=== PATIENT | female | born 1990 | race Two or more races ===

== ENCOUNTER 2016-05-02 14:14 | Emergency (ER) | payer MEDICAID ==
[~2016-05-02] VITALS: Ht 165.1 cm; Wt 90.7 kg
[~2016-05-02 14:14] MED LIST: PREN-145 OR
[2016-05-02 15:15] LABS: Basophils # (auto) 0 uL; Basophils % (auto) 0.4 % (0.0-2.0); Eosinophils # (auto) 0.2 uL; Eosinophils % (auto) 2.9 % (0.0-7.0); Hematocrit 39.2 % (36.0-46.0); Hemoglobin 12.9 g/dL (12.2-16.2); Lymphocytes # (auto) 2.7 uL; Lymphocytes % (auto) 32.4 % (10.0-50.0); Mean Corpuscular Hemoglobin 30.2 pg (28.0-32.0); Mean Corpuscular Hgb Conc. 32.9 g/dL (32.0-36.0); Mean Corpuscular Volume 91.8 fL (80.0-100.0); Mean Platelet Volume 9.8 fL (7.4-10.4); Monocytes # (auto) 0.8 uL; Monocytes % (auto) 9.1 % (0.0-12.0); Neutrophils # (auto) 4.6 uL; Neutrophils % (auto) 55.2 % (37.0-80.0); Platelet Count (auto) 307 10^3/uL (140-450); White Blood Cell 8.3 10^3/uL (4.4-10.8)
[2016-05-02 15:44] LABS: BUN/Creatinine Ratio 12.3; Bilirubin, Total 0.4 mg/dL (0.2-1.0); Calcium 8.6 mg/dL (8.5-10.1); Potassium 4.1 mmol/L (3.5-5.1); Total Protein 6.9 g/dL (6.4-8.2)
[2016-05-02 20:58] LABS: Urine RBC None Seen /hpf (0 - 4)
[2016-05-02 21:32] LABS: Urine Bilirubin Negative (Negative); Urine Blood Negative /uL (Negative); Urine Color Yellow (Yellow); Urine Glucose Normal (Normal); Urine Ketone TRACE (Negative); Urine Mucus FEW (None Seen); Urine Nitrite Negative (Negative); Urine Squamous Epithelial Cell MOD /hpf (<5); Urine Urobilinogen Normal (Negative)
[2016-05-03 00:25] VITALS: BP 102/70
== END 2016-05-03 01:06 | disposition home or self-care (01) ==
LOC: EDBD 14:14 → ER 14:22
DX: O20.0 Threatened abortion (principal); Z3A.01 Less than 8 weeks gestation of pregnancy
CPT/HCPCS: 36415; 76801; 80053; 81001; 84702; 85025; 85049; 86901

== ENCOUNTER 2016-05-18 14:10 | Emergency (ER) | payer MEDICAID ==
[~2016-05-18] VITALS: Ht 157.5 cm; Wt 99.8 kg
[2016-05-18 17:50] VITALS: BP 145/88
== END 2016-05-18 18:08 | disposition home or self-care (01) ==
LOC: EDBD 14:10 → EDUNIT# 14:10 → ER 14:21
DX: O26.891 Other specified pregnancy related conditions, first trimester (principal); Z3A.01 Less than 8 weeks gestation of pregnancy; R10.32 Left lower quadrant pain; R10.31 Right lower quadrant pain
CPT/HCPCS: 36415; 76801; 81002; 84702

== ENCOUNTER 2016-06-01 14:41 | Emergency (ER) | payer MEDICAID ==
[~2016-06-01] VITALS: Ht 154.9 cm; Wt 68.0 kg
[2016-06-01 15:43] LABS: Basophils # (auto) 0 uL; Basophils % (auto) 0.4 % (0.0-2.0); Eosinophils # (auto) 0.2 uL; Eosinophils % (auto) 1.8 % (0.0-7.0); Hematocrit 40.5 % (36.0-46.0); Hemoglobin 13.2 g/dL (12.2-16.2); Lymphocytes # (auto) 2.4 uL; Lymphocytes % (auto) 27.3 % (10.0-50.0); Mean Corpuscular Hemoglobin 29.9 pg (28.0-32.0); Mean Corpuscular Hgb Conc. 32.6 g/dL (32.0-36.0); Mean Corpuscular Volume 91.7 fL (80.0-100.0); Mean Platelet Volume 9.1 fL (7.4-10.4); Monocytes # (auto) 0.7 uL; Monocytes % (auto) 7.5 % (0.0-12.0); Neutrophils # (auto) 5.6 uL; Platelet Count (auto) 355 10^3/uL (140-450); Red Cell Distribution Width 13.8 % (11.6-16.0); White Blood Cell 8.9 10^3/uL (4.4-10.8)
[2016-06-01 16:00] LABS: BUN/Creatinine Ratio 13.3; Bilirubin, Total 0.4 mg/dL (0.2-1.0); Calcium 8.7 mg/dL (8.5-10.1); Total Protein 7.4 g/dL (6.4-8.2)
[2016-06-01 16:15] LABS: Urine Bilirubin Negative (Negative); Urine Blood Negative /uL (Negative); Urine Ca Oxalate Crystal FEW (None Seen); Urine Color Yellow (Yellow); Urine Glucose Normal (Normal); Urine Ketone Negative (Negative); Urine Mucus FEW (None Seen); Urine Nitrite Negative (Negative); Urine RBC 1 /hpf (0 - 4); Urine Squamous Epithelial Cell FEW /hpf (<5); Urine Urobilinogen Normal (Negative)
[2016-06-01] MEDS ORDERED: ONDANSETRON HCL 4 MG/2 ML VIAL IM ONE (23:00)
[2016-06-01] MEDS ORDERED: NALBUPHINE HCL 10 MG/1ml INJECTION IM ONE (23:00)
[2016-06-02] VITALS: BP 136/72
== END 2016-06-02 00:09 | disposition home or self-care (01) ==
LOC: ER 15:02
DX: O26.891 Other specified pregnancy related conditions, first trimester (principal); Z3A.10 10 weeks gestation of pregnancy; K29.70 Gastritis, unspecified, without bleeding; Z88.6 Allergy status to analgesic agent
CPT/HCPCS: 36415; 76775; 76801; 80053; 81001; 84702; 85025; 96372; 99285; J2300; J2405

== ENCOUNTER 2016-08-13 13:15 | Observation (INO) | payer MEDICAID ==
[~2016-08-13] VITALS: Ht 162.6 cm; Wt 117.9 kg
[2016-08-13] MEDS ORDERED: LACTATED RINGER'S 1,000 ML IV ONE (14:15)
[2016-08-13] MEDS ORDERED: ACETAMINOPHEN 325 MG TAB PO ONE (15:30)
[2016-08-13 17:57] LABS: Urine Bilirubin Negative (Negative); Urine Blood Negative /uL (Negative); Urine Ca Oxalate Crystal MOD (None Seen); Urine Color Yellow (Yellow); Urine Glucose Normal (Normal); Urine Ketone 2+ (Negative); Urine Mucus FEW (None Seen); Urine Nitrite Negative (Negative); Urine RBC 1 /hpf (0 - 4); Urine Squamous Epithelial Cell MOD /hpf (<5); Urine Urobilinogen Normal (Negative); Urine pH 6.5 (5.0-8.0)
== END 2016-08-13 16:05 | disposition home or self-care (01) | DRG 566 ==
LOC: LDRP 13:15
PROVIDERS: ADMIT Specialist; ATTEND Specialist
DX: O26.892 Other specified pregnancy related conditions, second trimester (principal); R10.32 Left lower quadrant pain; Z3A.20 20 weeks gestation of pregnancy
CPT/HCPCS: 59025; 81001; 81002; 87086; 96360; G0378; 96361

== ENCOUNTER 2016-10-19 18:55 | Observation (INO) | payer MEDICAID | END 2016-10-19 19:55 | disposition home or self-care (01) | DRG 566 | LOC: LDRP 18:55 | PROVIDERS: ADMIT Specialist; ATTEND Specialist | DX: O26.893 Other specified pregnancy related conditions, third trimester (principal); R10.33 Periumbilical pain; Z3A.29 29 weeks gestation of pregnancy | CPT/HCPCS: 59025; 81002; G0378 ==

== ENCOUNTER 2016-10-30 15:45 | Observation (INO) | payer MEDICAID ==
[~2016-10-30] VITALS: Ht 162.6 cm; Wt 121.6 kg
[2016-10-30] MEDS ORDERED: BETAMETHASONE ACET (6MG/ML) 5ML VIAL IM ONE (16:00)
[2016-10-30] MEDS ORDERED: NIFEdipine 10 MG CAP PO ONE (17:00)
== END 2016-10-30 17:20 | disposition home or self-care (01) | DRG 566 ==
LOC: LDRP 15:45
PROVIDERS: ADMIT Specialist; ATTEND Specialist
DX: O24.419 Gestational diabetes mellitus in pregnancy, unspecified control (principal); O60.03 Preterm labor without delivery, third trimester; O42.913 Preterm premature rupture of membranes, unspecified as to length of time between rupture and onset of labor, third trimester; Z3A.31 31 weeks gestation of pregnancy
CPT/HCPCS: 59025; 81002; 82962; 96372; G0378; J0702

== ENCOUNTER 2016-10-31 16:00 | Observation (INO) | payer MEDICAID ==
[2016-10-31] MEDS ORDERED: BETAMETHASONE ACET (6MG/ML) 5ML VIAL IM ONE (16:45)
== END 2016-10-31 17:25 | disposition home or self-care (01) | DRG 566 ==
LOC: LDRP 16:00
PROVIDERS: ADMIT Specialist; ATTEND Specialist
DX: O21.2 Late vomiting of pregnancy (principal); O26.893 Other specified pregnancy related conditions, third trimester; R42 Dizziness and giddiness; R51 Headache; R19.7 Diarrhea, unspecified; Z3A.31 31 weeks gestation of pregnancy
CPT/HCPCS: 59025; 81002; 96372; G0378

== ENCOUNTER 2016-11-19 08:40 | Observation (INO) | payer MEDICAID | END 2016-11-19 10:10 | disposition home or self-care (01) | DRG 566 | LOC: LDRP 08:40 | PROVIDERS: ADMIT Specialist; ATTEND Specialist | DX: O26.893 Other specified pregnancy related conditions, third trimester (principal); Z3A.34 34 weeks gestation of pregnancy | CPT/HCPCS: 59025; 81002; G0378 ==

== ENCOUNTER 2016-11-26 09:20 | Observation (INO) | payer MEDICAID | END 2016-11-26 11:15 | disposition home or self-care (01) | DRG 566 | LOC: LDRP 09:20 | PROVIDERS: ADMIT Obstetrics & Gynecology; ATTEND Obstetrics & Gynecology | DX: O26.893 Other specified pregnancy related conditions, third trimester (principal); Z3A.35 35 weeks gestation of pregnancy | CPT/HCPCS: 59025; 76818; 81002; 82948; 82962; G0378 ==

== ENCOUNTER 2016-12-05 07:35 | Observation (INO) | payer MEDICAID | END 2016-12-05 09:30 | disposition home or self-care (01) | DRG 566 | LOC: LDRP 07:35 | PROVIDERS: ADMIT Obstetrics & Gynecology; ATTEND Obstetrics & Gynecology | DX: O24.419 Gestational diabetes mellitus in pregnancy, unspecified control (principal); Z3A.36 36 weeks gestation of pregnancy | CPT/HCPCS: 59025; 76818; 81002; 82948; 82962; G0378 ==

== ENCOUNTER 2016-12-18 13:05 | Observation (INO) | payer MEDICAID ==
[~2016-12-18 13:05] MED LIST changes: +INSR100KIT IV; -PREN-145 OR; +PREN-153 OR
[2016-12-18] MEDS ORDERED: INSLANTI SC (13:56)
== END 2016-12-18 14:35 | disposition home or self-care (01) | DRG 566 ==
LOC: LDRP 13:05
PROVIDERS: ADMIT Specialist; ATTEND Specialist
DX: O24.419 Gestational diabetes mellitus in pregnancy, unspecified control (principal); Z3A.38 38 weeks gestation of pregnancy
CPT/HCPCS: 59025; 76818; 81002; 82962; G0378

== ENCOUNTER 2016-12-23 04:06 | Inpatient (IN) | payer MEDICAID ==
[2016-12-23] VITALS (14 sets, daily range): BP systolic 100–149; BP diastolic 40–73
[~2016-12-23] VITALS: Ht 160 cm; Wt 123.4 kg
[~2016-12-23 04:06] MED LIST changes: +INSLANTI SC
[2016-12-23] MEDS ORDERED: NIF10C GT (04:30)
[2016-12-23 04:58] LABS: Basophils # (auto) 0 uL; Basophils % (auto) 0.5 % (0.0-2.0); CONDITION Y; Eosinophils # (auto) 0.1 uL; Eosinophils % (auto) 1.4 % (0.0-7.0); Hematocrit 39.7 % (36.0-46.0); Hemoglobin 13.7 g/dL (12.2-16.2); Lymphocytes % (auto) 32.7 % (10.0-50.0); Mean Corpuscular Hemoglobin 31.8 pg (28.0-32.0); Mean Corpuscular Hgb Conc. 34.4 g/dL (32.0-36.0); Mean Corpuscular Volume 92.5 fL (80.0-100.0); Mean Platelet Volume 10.9 fL (7.4-10.4); Monocytes # (auto) 0.7 uL; Monocytes % (auto) 8.1 % (0.0-12.0); Neutrophils # (auto) 5.2 uL; Neutrophils % (auto) 57.3 % (37.0-80.0); Platelet Count (auto) 235 10^3/uL (140-450); Red Cell Distribution Width 14.7 % (11.6-16.0); White Blood Cell 9.1 10^3/uL (4.4-10.8)
[2016-12-23 05:13] LABS: INR 0.87 (0.9-1.15); Partial Thromboplastin Time 28.7 sec (22.64-33.71); Prothrombin Time 9.5 sec (9.37-12.3)
[2016-12-23 05:16] LABS: Albumin 2.3 g/dL (3.4-5.0); BUN/Creatinine Ratio 11.9; Calcium 8.2 mg/dL (8.5-10.1); Potassium 3.6 mmol/L (3.5-5.1)
[2016-12-23 05:19] LABS: Bilirubin, Total 0.5 mg/dL (0.2-1.0); Total Protein 6.4 g/dL (6.4-8.2)
[2016-12-23 05:34] LABS: Urine Bilirubin Negative (Negative); Urine Blood Negative /uL (Negative); Urine Color Yellow (Yellow); Urine Glucose Normal (Normal); Urine Ketone Negative (Negative); Urine Mucus FEW (None Seen); Urine Nitrite Negative (Negative); Urine RBC 2 /hpf (0 - 4); Urine Sperm PRESENT /hpf (None Seen); Urine Squamous Epithelial Cell MOD /hpf (<5); Urine Urobilinogen Normal (Negative); Urine pH 6.5 (5.0-8.0)
[2016-12-23] MEDS ORDERED: TETRACAINE 1% INJ 2 ML VIAL IJ ONE (06:43)
[2016-12-23] MEDS ORDERED: ceFAZolin 1GM VL ONE (06:49)
[2016-12-23] MEDS ORDERED: ePHEDrine SULFATE 50 MG/ML AMP ONE ×2 (06:49→08:09)
[2016-12-23] MEDS ORDERED: fentaNYL CITRATE 100 MCG/2 ML VL ONE (06:49)
[2016-12-23] MEDS ORDERED: MIDAZOLAM HCL 1MG/1ML-2 ML VIAL ONE (06:49)
[2016-12-23] MEDS ORDERED: ONDANSETRON HCL 4 MG/2 ML VIAL ONE (06:49)
[2016-12-23] MEDS ORDERED: OXYTOCIN 10 UNIT/ML 10ML VIAL ONE (06:49)
[2016-12-23] MEDS ORDERED: SODIUM CHLORIDE LOCK 20 ML ONE (06:49)
[2016-12-23] MEDS ORDERED: MORPHINE SULF(PF) 0.5MG/ML 10ML VIAL ONE (06:54)
[2016-12-23] MEDS: ACCU-CHEK COMFORT CURVE STRIP VI SCH ×2 (07:20→17:07)
[2016-12-23] MEDS ORDERED: LACT. RINGERS/OXYTOCIN 20UNITS 1,000 ML IV SCH (08:13)
[2016-12-23] MEDS ORDERED: ACCU-CHEK COMFORT CURVE STRIP VI ONE (08:30)
[2016-12-23] MEDS ORDERED: HYDROmorphone HCL 2 MG/ML VL IV PRN (08:30)
[2016-12-23] MEDS ORDERED: ONDANSETRON HCL 4 MG/2 ML VIAL IV ONE (08:30)
[2016-12-23] MEDS ORDERED: NALOXONE HCL 0.4 MG/ML VIAL IV PRN (08:30)
[2016-12-23] MEDS ORDERED: diphenhdrAMINE HCL 50 MG/1 ML VL IV PRN (08:30)
[2016-12-23] MEDS: LACTATED RINGER'S 1,000 ML IV SCH ×3 (11:47→20:11)
[2016-12-23] MEDS: HYDROmorphone HCL 2 MG/ML VL IV PRN ×3 (11:47→19:05)
[2016-12-23] MEDS: MORPHINE SULF INJ 2 MG/ML SYRINGE 1ML IV PRN ×2 (14:38→22:46)
[2016-12-23] MEDS: ceFAZolin 1GM/50ML D5W 50 ML IV SCH ×2 (15:16→23:30)
[2016-12-23 20:28] LABS: Basophils # (auto) 0 uL; Basophils % (auto) 0.3 % (0.0-2.0); CONDITION Y; Eosinophils # (auto) 0 uL; Hemoglobin 11.9 g/dL (12.2-16.2); Lymphocytes # (auto) 1.8 uL; Lymphocytes % (auto) 13.6 % (10.0-50.0); Mean Corpuscular Hemoglobin 31.7 pg (28.0-32.0); Mean Corpuscular Hgb Conc. 34.1 g/dL (32.0-36.0); Mean Corpuscular Volume 92.8 fL (80.0-100.0); Mean Platelet Volume 11.2 fL (7.4-10.4); Monocytes # (auto) 0.7 uL; Monocytes % (auto) 5.1 % (0.0-12.0); Neutrophils # (auto) 10.8 uL; Platelet Count (auto) 221 10^3/uL (140-450); Red Cell Distribution Width 14.4 % (11.6-16.0); White Blood Cell 13.4 10^3/uL (4.4-10.8)
[2016-12-24] VITALS (7 sets, daily range): BP systolic 97–125; BP diastolic 40–86
[2016-12-24] MEDS: HYDROmorphone HCL 2 MG/ML VL IV PRN ×2 (01:32→03:41)
[2016-12-24 07:03] LABS: Lymphocytes % (auto) 27.1 % (10.0-50.0); Monocytes % (auto) 8.1 % (0.0-12.0); Neutrophils % (auto) 64.1 % (37.0-80.0); White Blood Cell 11.4 10^3/uL (4.4-10.8)
[2016-12-24 07:04] LABS: Basophils # (auto) 0 uL; Basophils % (auto) 0.1 % (0.0-2.0); Eosinophils # (auto) 0.1 uL; Eosinophils % (auto) 0.6 % (0.0-7.0); Hematocrit 31.7 % (36.0-46.0); Hemoglobin 10.9 g/dL (12.2-16.2); Lymphocytes # (auto) 3.1 uL; Monocytes # (auto) 0.9 uL; Neutrophils # (auto) 7.3 uL
[2016-12-24 07:05] LABS: Mean Corpuscular Hemoglobin 31.7 pg (28.0-32.0); Mean Corpuscular Hgb Conc. 34.5 g/dL (32.0-36.0); Mean Corpuscular Volume 91.9 fL (80.0-100.0); Mean Platelet Volume 11.1 fL (7.4-10.4); Platelet Count (auto) 210 10^3/uL (140-450); Red Cell Distribution Width 14.7 % (11.6-16.0)
[2016-12-24] MEDS: MORPHINE SULF INJ 2 MG/ML SYRINGE 1ML IV PRN (07:14)
[2016-12-24] MEDS: ceFAZolin 1GM/50ML D5W 50 ML IV SCH (07:15)
[2016-12-24] MEDS: ACCU-CHEK COMFORT CURVE STRIP VI SCH ×4 (07:20→21:39)
[2016-12-24] MEDS ORDERED: HYDROcodone-ACET 5/325MG TAB PO PRN (09:00)
[2016-12-24] MEDS ORDERED: BISACODYL 10 MG RECT SUPP PR PRN (09:00)
[2016-12-24] MEDS: HYDROcodone-ACET 5/325MG TAB PO PRN ×3 (10:39→22:39)
[2016-12-24] MEDS: DOCUSATE CALCIUM 240 MG CAP PO SCH (10:43)
[2016-12-24] MEDS: DOCUSATE SOD 100 MG CAP PO SCH ×2 (10:43→21:36)
[2016-12-24] MEDS: IBUPROFEN 800 MG TAB PO PRN ×2 (13:06→21:37)
[2016-12-24] MEDS: SIMETHICONE 80 MG CHEWABLE TABLET PO SCH ×3 (13:06→21:36)
[2016-12-25 03:15] VITALS: BP 125/88
[2016-12-25] MEDS: HYDROcodone-ACET 5/325MG TAB PO PRN ×4 (03:35→22:41)
[2016-12-25] MEDS: SIMETHICONE 80 MG CHEWABLE TABLET PO SCH (05:41)
[2016-12-25] MEDS: IBUPROFEN 800 MG TAB PO PRN ×2 (05:41→15:25)
[2016-12-25 07:35] VITALS: BP 119/61
[2016-12-25] MEDS: DOCUSATE CALCIUM 240 MG CAP PO SCH (10:52)
[2016-12-25] MEDS: DOCUSATE SOD 100 MG CAP PO SCH ×2 (10:52→21:58)
[2016-12-25 11:10] VITALS: BP 121/77
[2016-12-25 15:35] VITALS: BP 141/72
[2016-12-25 19:00] VITALS: BP 143/89
[2016-12-25 22:44] VITALS: BP 138/84
[2016-12-26] MEDS: IBUPROFEN 800 MG TAB PO PRN (02:45)
[2016-12-26 03:00] VITALS: BP 114/59
[2016-12-26] MEDS: HYDROcodone-ACET 5/325MG TAB PO PRN (05:44)
[2016-12-26 08:18] VITALS: BP 141/86
== END 2016-12-26 08:40 | disposition home or self-care (01) | DRG 540 ==
LOC: LDRP 04:06
PROVIDERS: ADMIT Obstetrics & Gynecology; ATTEND Obstetrics & Gynecology
PROC: 10D00Z1 Extraction of Products of Conception, Low, Open Approach (ICD-10-PCS; principal; 2016-12-23 07:00)
DX: O24.429 Gestational diabetes mellitus in childbirth, unspecified control (principal); Z68.42 Body mass index [BMI] 45.0-49.9, adult; O34.211 Maternal care for low transverse scar from previous cesarean delivery; O99.214 Obesity complicating childbirth; E66.9 Obesity, unspecified; Z37.0 Single live birth
CPT/HCPCS: 36415; 51702; 59025; 73562; 80053; 81001; 81002; 82948; 82962; 85025; 85610; 85730; 86850; 86900; 86901; 96361; 96366; J0690; J2250; J2405; J2590

== ENCOUNTER 2016-12-31 03:34 | Emergency (ER) | payer MEDICAID ==
[~2016-12-31] VITALS: Ht 160 cm; Wt 108.9 kg
[~2016-12-31 03:34] MED LIST changes: +NIF10C GT
[2016-12-31] MEDS ORDERED: SODIUM CHLORIDE 0.9% 1,000 ML IV ONE (04:00)
[2016-12-31 04:23] LABS: Basophils # (auto) 0.1 uL; Basophils % (auto) 0.9 % (0.0-2.0); Eosinophils # (auto) 0.3 uL; Eosinophils % (auto) 3.7 % (0.0-7.0); Hematocrit 37.7 % (36.0-46.0); Hemoglobin 12.8 g/dL (12.2-16.2); Lymphocytes # (auto) 2.6 uL; Lymphocytes % (auto) 35.4 % (10.0-50.0); Mean Corpuscular Hemoglobin 31.9 pg (28.0-32.0); Mean Corpuscular Volume 93.7 fL (80.0-100.0); Monocytes # (auto) 0.7 uL; Monocytes % (auto) 9.2 % (0.0-12.0); Neutrophils # (auto) 3.8 uL; Neutrophils % (auto) 50.8 % (37.0-80.0); Nucleated Red Blood Cells % 0.1 %; Platelet Count (auto) 383 10^3/uL (140-450); Red Cell Distribution Width 13.9 % (11.6-16.0); White Blood Cell 7.4 10^3/uL (4.4-10.8)
[2016-12-31] MEDS ORDERED: NEOMYCIN-BACITRACIN-POLYM 15GM TOP OINT TOP ONE ×2 (04:26→04:30)
[2016-12-31 04:28] LABS: Urine Bilirubin Negative (Negative); Urine Blood 3+ /uL (Negative); Urine Color Yellow (Yellow); Urine Glucose Normal (Normal); Urine Ketone Negative (Negative); Urine Mucus FEW (None Seen); Urine Nitrite Negative (Negative); Urine RBC 255 /hpf (0 - 4); Urine Squamous Epithelial Cell FEW /hpf (<5); Urine Urobilinogen Normal (Negative); Urine pH 6.5 (5.0-8.0)
[2016-12-31 04:41] LABS: Albumin 2.6 g/dL (3.4-5.0); Calcium 9.1 mg/dL (8.5-10.1); Potassium 3.8 mmol/L (3.5-5.1)
[2016-12-31 04:44] LABS: Bilirubin, Total 0.4 mg/dL (0.2-1.0); Total Protein 6.9 g/dL (6.4-8.2)
[2016-12-31] MEDS ORDERED: cefTRIAXone 1GM/50ML D5W 50 ML IV ONE (04:45)
[2016-12-31] MEDS ORDERED: traMADol HCL 50 MG TAB PO ONE (05:00)
[2016-12-31 05:02] VITALS: BP 120/59
== END 2016-12-31 07:15 | disposition home or self-care (01) ==
LOC: ER 03:34
DX: T81.4XXA Infection following a procedure, initial encounter (principal); L03.311 Cellulitis of abdominal wall; Z88.6 Allergy status to analgesic agent
CPT/HCPCS: 36415; 74176; 76705; 80053; 81001; 81025; 85025; 96365; 99285; J0696

== ENCOUNTER 2017-06-03 10:00 | Emergency (ER) | payer MEDICAID ==
[~2017-06-03] VITALS: Ht 160 cm; Wt 117.9 kg
[2017-06-03 10:53] LABS: Basophils # (auto) 0.1 uL; Basophils % (auto) 0.9 % (0.0-2.0); Eosinophils # (auto) 0.3 uL; Eosinophils % (auto) 3.5 % (0.0-7.0); Hematocrit 39.8 % (36.0-46.0); Hemoglobin 13.3 g/dL (12.2-16.2); Lymphocytes # (auto) 2.6 uL; Lymphocytes % (auto) 35.6 % (10.0-50.0); Mean Corpuscular Hemoglobin 31.2 pg (28.0-32.0); Mean Corpuscular Hgb Conc. 33.4 g/dL (32.0-36.0); Mean Corpuscular Volume 93.4 fL (80.0-100.0); Monocytes # (auto) 0.6 uL; Monocytes % (auto) 8.1 % (0.0-12.0); Neutrophils # (auto) 3.7 uL; Neutrophils % (auto) 51.9 % (37.0-80.0); Nucleated Red Blood Cells % 0.1 %; Platelet Count (auto) 293 10^3/uL (140-450); Red Blood Cells 4.26 10^6/uL (4.0-5.20); Red Cell Distribution Width 14.4 % (11.8-14.3); White Blood Cell 7.2 10^3/uL (4.4-10.8)
[2017-06-03 11:27] LABS: Albumin 3.2 g/dL (3.4-5.0); BUN/Creatinine Ratio 13.3; Calcium 8.9 mg/dL (8.5-10.1); Potassium 3.8 mmol/L (3.5-5.1)
[2017-06-03 11:29] LABS: Bilirubin, Total 0.5 mg/dL (0.2-1.0); Total Protein 7.1 g/dL (6.4-8.2)
[2017-06-03 14:50] VITALS: BP 137/94
== END 2017-06-03 15:57 | disposition left against medical advice (07) ==
LOC: ER 10:00
DX: O20.8 Other hemorrhage in early pregnancy (principal); Z3A.01 Less than 8 weeks gestation of pregnancy
CPT/HCPCS: 36415; 76801; 76817; 80053; 84702; 85025

== ENCOUNTER 2017-06-05 13:32 | Emergency (ER) | payer MEDICAID ==
[~2017-06-05] VITALS: Ht 160 cm; Wt 117.9 kg
[2017-06-05 14:02] LABS: Basophils # (auto) 0.1 uL; Basophils % (auto) 0.6 % (0.0-2.0); Eosinophils # (auto) 0.2 uL; Eosinophils % (auto) 2.5 % (0.0-7.0); Hematocrit 39.7 % (36.0-46.0); Hemoglobin 13.4 g/dL (12.2-16.2); Lymphocytes % (auto) 33.4 % (10.0-50.0); Mean Corpuscular Hemoglobin 31.1 pg (28.0-32.0); Mean Corpuscular Hgb Conc. 33.9 g/dL (32.0-36.0); Mean Corpuscular Volume 91.7 fL (80.0-100.0); Monocytes # (auto) 0.7 uL; Monocytes % (auto) 8.3 % (0.0-12.0); Neutrophils % (auto) 55.2 % (37.0-80.0); Nucleated Red Blood Cells % 0.2 %; Platelet Count (auto) 301 10^3/uL (140-450); Red Blood Cells 4.32 10^6/uL (4.0-5.20); Red Cell Distribution Width 14.3 % (11.8-14.3)
[2017-06-05 14:25] LABS: Albumin 3.2 g/dL (3.4-5.0); BUN/Creatinine Ratio 13.4; Bilirubin, Total 0.5 mg/dL (0.2-1.0); Calcium 8.5 mg/dL (8.5-10.1); Potassium 3.8 mmol/L (3.5-5.1); Total Protein 7.4 g/dL (6.4-8.2)
[2017-06-05 14:46] LABS: Urine Bacteria NONE SEEN /hpf (None Seen); Urine Blood 3+ /uL (Negative); Urine WBC 3 /hpf (0 - 5)
[2017-06-05 15:00] VITALS: BP 117/60
== END 2017-06-05 16:32 | disposition home or self-care (01) ==
LOC: ER 13:32
DX: O20.8 Other hemorrhage in early pregnancy (principal); O26.891 Other specified pregnancy related conditions, first trimester; Z3A.01 Less than 8 weeks gestation of pregnancy; Z88.6 Allergy status to analgesic agent
CPT/HCPCS: 36415; 80053; 81001; 84702; 85025

== ENCOUNTER 2017-06-08 00:55 | Emergency (ER) | payer MEDICAID ==
[~2017-06-08] VITALS: Ht 165.1 cm; Wt 90.7 kg
[2017-06-08 02:28] LABS: Basophils # (auto) 0.1 uL; Basophils % (auto) 1.1 % (0.0-2.0); Eosinophils # (auto) 0.4 uL; Eosinophils % (auto) 3.6 % (0.0-7.0); Hematocrit 40.7 % (36.0-46.0); Hemoglobin 13.8 g/dL (12.2-16.2); Lymphocytes # (auto) 4.2 uL; Lymphocytes % (auto) 36.8 % (10.0-50.0); Mean Corpuscular Hemoglobin 31.4 pg (28.0-32.0); Mean Corpuscular Volume 92.4 fL (80.0-100.0); Monocytes # (auto) 0.8 uL; Monocytes % (auto) 7.5 % (0.0-12.0); Neutrophils # (auto) 5.7 uL; Platelet Count (auto) 289 10^3/uL (140-450); Red Cell Distribution Width 14.2 % (11.8-14.3); White Blood Cell 11.3 10^3/uL (4.4-10.8)
[2017-06-08 02:45] LABS: Albumin 3.4 g/dL (3.4-5.0); BUN/Creatinine Ratio 17.9; Calcium 8.9 mg/dL (8.5-10.1); Potassium 3.9 mmol/L (3.5-5.1)
[2017-06-08 02:48] LABS: Bilirubin, Total 0.4 mg/dL (0.2-1.0); Total Protein 7.6 g/dL (6.4-8.2)
[2017-06-08 02:50] LABS: INR 0.9 (0.9-1.15); Partial Thromboplastin Time 27.4 sec (22.64-33.71); Prothrombin Time 9.8 sec (9.37-12.3)
[2017-06-08 03:09] LABS: Urine Bacteria NONE SEEN /hpf (None Seen); Urine Blood 3+ /uL (Negative); Urine Specific Gravity 1.011 (1.001-1.035); Urine WBC 2230 /hpf (0 - 5)
[2017-06-08] MEDS ORDERED: SODIUM CHLORIDE 0.9% 1,000 ML IV ONE (06:00)
[2017-06-08 07:51] VITALS: BP 129/74
[2017-06-08] MEDS ORDERED: HYDROcodone-ACET 5/325MG TAB PO ONE (08:00)
[2017-06-08] MEDS ORDERED: NITROFURANTOIN (MONO) 100 mg CAP PO ONE (08:30)
== END 2017-06-08 08:45 | disposition home or self-care (01) ==
LOC: ER 00:55 → EDBD 00:55 → ER 08:45
DX: O20.0 Threatened abortion (principal); Z3A.01 Less than 8 weeks gestation of pregnancy; Z88.6 Allergy status to analgesic agent
CPT/HCPCS: 36415; 76801; 80053; 81001; 84702; 85025; 85610; 85730; 86850; 86900; 86901; 88305; 96360; 96361; 99285; J7030

== ENCOUNTER 2018-01-06 02:39 | Emergency (ER) | payer MEDICAID ==
[~2018-01-06] VITALS: Ht 162.6 cm; Wt 122.5 kg
[2018-01-06 03:15] VITALS: BP 145/66
[2018-01-06 04:14] LABS: Urine Bacteria NONE SEEN /hpf (None Seen); Urine Blood 1+ /uL (Negative); Urine Mucus FEW (None Seen); Urine Specific Gravity 1.021 (1.001-1.035); Urine WBC 1 /hpf (0 - 5)
[2018-01-06 04:41] LABS: Basophils # (auto) 0.1 uL; Basophils % (auto) 0.6 % (0.0-2.0); Eosinophils # (auto) 0.5 uL; Eosinophils % (auto) 5.6 % (0.0-7.0); Hematocrit 40.7 % (36.0-46.0); Hemoglobin 13.7 g/dL (12.2-16.2); Lymphocytes # (auto) 3.6 uL; Lymphocytes % (auto) 37.2 % (10.0-50.0); Mean Corpuscular Hemoglobin 31.2 pg (28.0-32.0); Mean Corpuscular Hgb Conc. 33.6 g/dL (32.0-36.0); Mean Corpuscular Volume 92.9 fL (80.0-100.0); Monocytes # (auto) 0.7 uL; Monocytes % (auto) 7.5 % (0.0-12.0); Neutrophils # (auto) 4.8 uL; Neutrophils % (auto) 49.1 % (37.0-80.0); Nucleated Red Blood Cells % 0.1 %; Platelet Count (auto) 309 10^3/uL (140-450); Red Blood Cells 4.39 10^6/uL (4.0-5.20); Red Cell Distribution Width 13.9 % (11.8-14.3); White Blood Cell 9.7 10^3/uL (4.4-10.8)
[2018-01-06 04:50] LABS: Calcium 8.1 mg/dL (8.5-10.1); Potassium 3.7 mmol/L (3.5-5.1)
[2018-01-06 04:59] LABS: BUN/Creatinine Ratio 22.7
[2018-01-06] MEDS: KETOROLAC TROMETH 60MG/2ML VIAL IM ONE (05:40)
[2018-01-06] MEDS: ONDANSETRON ODT 4 MG TAB PO ONE (05:40)
== END 2018-01-06 06:27 | disposition home or self-care (01) ==
LOC: ER 02:40
DX: K80.20 Calculus of gallbladder without cholecystitis without obstruction (principal); Z79.82 Long term (current) use of aspirin; Z79.4 Long term (current) use of insulin
CPT/HCPCS: 36415; 76705; 80048; 81001; 81025; 82150; 83690; 85025; 96372; 99285; J1885; Q0162

== ENCOUNTER 2018-06-22 02:17 | Emergency (ER) | payer MEDICAID ==
[~2018-06-22] VITALS: Ht 162.6 cm; Wt 99.8 kg
[2018-06-22 02:29] VITALS: BP 115/80
[2018-06-22 03:50] LABS: Basophils # (auto) 0.1 uL; Basophils % (auto) 0.5 % (0.0-2.0); Eosinophils # (auto) 0.5 uL; Eosinophils % (auto) 4.3 % (0.0-7.0); Hematocrit 41.2 % (36.0-46.0); Hemoglobin 14.1 g/dL (12.2-16.2); Lymphocytes # (auto) 3.8 uL; Lymphocytes % (auto) 34.2 % (10.0-50.0); Mean Corpuscular Hemoglobin 31.8 pg (28.0-32.0); Mean Corpuscular Hgb Conc. 34.4 g/dL (32.0-36.0); Mean Corpuscular Volume 92.5 fL (80.0-100.0); Monocytes # (auto) 0.7 uL; Monocytes % (auto) 6.6 % (0.0-12.0); Neutrophils % (auto) 54.4 % (37.0-80.0); Nucleated Red Blood Cells % 0.1 %; Platelet Count (auto) 312 10^3/uL (140-450); Red Blood Cells 4.45 10^6/uL (4.0-5.20); Red Cell Distribution Width 13.8 % (11.8-14.3)
[2018-06-22 04:00] LABS: Albumin 3.3 g/dL (3.4-5.0); BUN/Creatinine Ratio 17.8; Calcium 8.7 mg/dL (8.5-10.1); Potassium 3.5 mmol/L (3.5-5.1)
[2018-06-22 04:02] LABS: Bilirubin, Total 0.4 mg/dL (0.2-1.0); Total Protein 7.4 g/dL (6.4-8.2)
== END 2018-06-22 06:00 | disposition left against medical advice (07) ==
LOC: EDBD 02:17 → ER 02:24
DX: R10.11 Right upper quadrant pain (principal); Z53.21 Procedure and treatment not carried out due to patient leaving prior to being seen by health care provider
CPT/HCPCS: 36415; 74176; 80053; 82150; 83690; 85025; 93005

== ENCOUNTER 2019-01-08 20:59 | Emergency (ER) | payer MEDICAID ==
[~2019-01-08] VITALS: Ht 162.6 cm; Wt 132.1 kg
[2019-01-08 21:40] LABS: Basophils # (auto) 0.1 uL; Basophils % (auto) 0.7 % (0.0-2.0); Eosinophils # (auto) 0.4 uL; Eosinophils % (auto) 3.5 % (0.0-7.0); Hematocrit 41.3 % (36.0-46.0); Hemoglobin 13.9 g/dL (12.2-16.2); Lymphocytes # (auto) 3.4 uL; Lymphocytes % (auto) 29.3 % (10.0-50.0); Mean Corpuscular Hemoglobin 31.1 pg (28.0-32.0); Mean Corpuscular Hgb Conc. 33.7 g/dL (32.0-36.0); Mean Corpuscular Volume 92.3 fL (80.0-100.0); Monocytes # (auto) 0.8 uL; Monocytes % (auto) 6.6 % (0.0-12.0); Neutrophils # (auto) 7.1 uL; Neutrophils % (auto) 59.9 % (37.0-80.0); Platelet Count (auto) 280 10^3/uL (140-450); Red Blood Cells 4.47 10^6/uL (4.0-5.20); Red Cell Distribution Width 13.8 % (11.8-14.3); White Blood Cell 11.8 10^3/uL (4.4-10.8)
[2019-01-08 21:53] LABS: Alanine Aminotransferase 27 U/L (13-56); Albumin 3.3 g/dL (3.4-5.0); Anion Gap 8 (5-15); Aspartate Aminotransferase 28 U/L (15-37); BUN/Creatinine Ratio 13.8; Blood Urea Nitrogen 11 mg/dL (7-18); Calcium 8.4 mg/dL (8.5-10.1); Carbon Dioxide 22 mmol/L (21-32); Chloride 110 mmol/L (98-107); GFR African American 111 mL/min; GFR Non-African American 91 mL/min; Glucose 114 mg/dL (74-106); Potassium 3.6 mmol/L (3.5-5.1); Sodium 140 mmol/L (136-145)
[2019-01-08 21:58] LABS: Alkaline Phosphatase 87 U/L (45-117); Bilirubin, Total 0.3 mg/dL (0.2-1.0); Total Protein 7.5 g/dL (6.4-8.2)
[2019-01-08 22:30] LABS: Urine Bacteria NONE SEEN /hpf (None Seen); Urine Blood Negative /uL (Negative); Urine Specific Gravity 1.025 (1.001-1.035); Urine WBC <1 /hpf (0 - 5)
[2019-01-09 00:14] VITALS: BP 105/59
[2019-01-09] MEDS ORDERED: MORPHINE SULFATE 4 MG/ML SYR/VIAL IV ONE (00:45)
[2019-01-09] MEDS ORDERED: SODIUM CHLORIDE 0.9% 1,000 ML IV ONE (00:45)
[2019-01-09] MEDS ORDERED: ONDANSETRON HCL 4 MG/2 ML VIAL IV ONE (00:45)
[2019-01-09] MEDS ORDERED: cefTRIAXone 1GM/50ML D5W 50 ML IV ONE (00:45)
== END 2019-01-09 02:20 | disposition home or self-care (01) ==
LOC: ER 21:00
DX: N20.0 Calculus of kidney (principal); N39.0 Urinary tract infection, site not specified; Z88.6 Allergy status to analgesic agent; Z79.899 Other long term (current) drug therapy
CPT/HCPCS: 36415; 74176; 80053; 81001; 84484; 84702; 85025; 96365; 96375; 99284; J0696; J2270; J2405; J7030

== ENCOUNTER 2020-12-03 15:49 | Emergency (ER) | payer MEDICAID ==
[~2020-12-03] VITALS: Ht 162.6 cm; Wt 134.3 kg
[2020-12-03 15:49] VITALS: BP 156/88
[~2020-12-03 15:49] MED LIST changes: -PREN-153 OR; +PREN1TAB71 OR
[2020-12-03] MEDS ORDERED: MORPHINE SULFATE 4 MG/ML SYR/VIAL IV ONE (18:00)
[2020-12-03] MEDS ORDERED: ONDANSETRON HCL 4 MG/2 ML VIAL IV ONE (18:00)
[2020-12-03] MEDS ORDERED: SODIUM CHLORIDE 0.9% 1,000 ML IVB ONE (18:00)
[2020-12-03 18:21] LABS: Basophils # (auto) 0.1 10 ^3/uL (0-0.2); Basophils % (auto) 0.7 % (0.0-2.0); Eosinophils # (auto) 0.3 10 ^3/uL (0-0.8); Eosinophils % (auto) 3.1 % (0.0-7.0); Hematocrit 40.1 % (36.0-46.0); Hemoglobin 13.4 g/dL (12.2-16.2); Lymphocytes # (auto) 3.2 10 ^3/uL (0.4-5.4); Mean Corpuscular Hemoglobin 30.7 pg (28.0-32.0); Mean Corpuscular Hgb Conc. 33.5 g/dL (32.0-36.0); Mean Corpuscular Volume 91.6 fL (80.0-100.0); Monocytes # (auto) 0.8 10 ^3/uL (0-1.3); Monocytes % (auto) 7.2 % (0.0-12.0); Neutrophils # (auto) 6.3 10 ^3/uL (1.6-8.6); Nucleated Red Blood Cells % 0.1 %; Red Blood Cells 4.38 10^6/uL (4.0-5.20); Red Cell Distribution Width 13.8 % (11.8-14.3); White Blood Cell 10.6 10^3/uL (4.4-10.8)
[2020-12-03 18:30] LABS: Calcium 8.9 mg/dL (8.5-10.1); Potassium 3.7 mmol/L (3.5-5.1)
[2020-12-03 18:35] LABS: BUN/Creatinine Ratio 15.4; Bilirubin, Total 0.4 mg/dL (0.2-1.0); Total Protein 7.7 g/dL (6.4-8.2)
[2020-12-03 19:09] LABS: Urine Bacteria FEW /hpf (None Seen); Urine Blood 3+ /uL (Negative); Urine Hyaline Cast FEW /lpf (0 - 2); Urine Mucus FEW (None Seen); Urine WBC <1 /hpf (0 - 5)
== END 2020-12-03 21:18 | disposition home or self-care (01) ==
LOC: ER 15:49
DX: K80.20 Calculus of gallbladder without cholecystitis without obstruction (principal); R10.32 Left lower quadrant pain; R31.9 Hematuria, unspecified; F17.210 Nicotine dependence, cigarettes, uncomplicated; Z87.442 Personal history of urinary calculi; Z79.82 Long term (current) use of aspirin; Z79.4 Long term (current) use of insulin; Z79.899 Other long term (current) drug therapy
CPT/HCPCS: 36415; 74176; 80053; 81001; 81025; 83690; 85025; 96361; 96374; 96375; 99284; J2270; J2405

== ENCOUNTER 2020-12-15 01:05 | Emergency (ER) | payer MEDICAID ==
[~2020-12-15] VITALS: Ht 162.6 cm; Wt 132.4 kg
[2020-12-15 02:38] LABS: Urine Bacteria FEW /hpf (None Seen); Urine Blood Negative /uL (Negative); Urine Mucus FEW (None Seen); Urine Specific Gravity 1.028 (1.001-1.035); Urine WBC 1 /hpf (0 - 5)
[2020-12-15 08:24] VITALS: BP 130/72
== END 2020-12-15 09:12 | disposition home or self-care (01) ==
LOC: ER 01:05
DX: N76.0 Acute vaginitis (principal); R30.0 Dysuria; R35.0 Frequency of micturition; F17.210 Nicotine dependence, cigarettes, uncomplicated; Z79.899 Other long term (current) drug therapy; Z88.6 Allergy status to analgesic agent
CPT/HCPCS: 81001; 87210

== ENCOUNTER 2021-09-18 21:34 | Emergency (ER) | payer MEDICAID ==
[~2021-09-18] VITALS: Ht 160 cm; Wt 133.4 kg
[2021-09-18 22:31] LABS: Urine Bacteria NONE SEEN /hpf (None Seen); Urine Blood Negative /uL (Negative); Urine Mucus FEW (None Seen); Urine Specific Gravity 1.029 (1.001-1.035); Urine WBC 1 /hpf (0 - 5)
[2021-09-19 00:20] LABS: Basophils # (auto) 0.1 10 ^3/uL (0-0.2); Basophils % (auto) 0.6 % (0.0-2.0); Eosinophils # (auto) 0.5 10 ^3/uL (0-0.8); Hematocrit 40.4 % (36.0-46.0); Hemoglobin 13.8 g/dL (12.2-16.2); Lymphocytes # (auto) 4.1 10 ^3/uL (0.4-5.4); Lymphocytes % (auto) 36.2 % (10.0-50.0); Mean Corpuscular Hemoglobin 31.4 pg (28.0-32.0); Mean Corpuscular Hgb Conc. 34.1 g/dL (32.0-36.0); Monocytes # (auto) 0.8 10 ^3/uL (0-1.3); Monocytes % (auto) 7.2 % (0.0-12.0); Nucleated Red Blood Cells % 0.1 %; Red Blood Cells 4.39 10^6/uL (4.0-5.20); Red Cell Distribution Width 14.2 % (11.8-14.3); White Blood Cell 11.4 10^3/uL (4.4-10.8)
[2021-09-19 00:28] LABS: Albumin 3.2 g/dL (3.4-5.0); Potassium 3.7 mmol/L (3.5-5.1)
[2021-09-19 00:30] LABS: BUN/Creatinine Ratio 10.2
[2021-09-19 00:36] LABS: Bilirubin, Total 0.4 mg/dL (0.2-1.0); Total Protein 7.3 g/dL (6.4-8.2)
[2021-09-19] MEDS ORDERED: PERCOT PO (02:04)
[2021-09-19] MEDS ORDERED: CIPR-173 PO (02:04)
[2021-09-19 02:34] VITALS: BP 132/82
== END 2021-09-19 02:35 | disposition home or self-care (01) ==
LOC: ER 21:34
DX: N39.0 Urinary tract infection, site not specified (principal); F17.210 Nicotine dependence, cigarettes, uncomplicated; Z79.4 Long term (current) use of insulin; Z79.899 Other long term (current) drug therapy; Z88.6 Allergy status to analgesic agent
CPT/HCPCS: 36415; 71045; 74176; 80053; 81001; 83690; 85025

== ENCOUNTER 2021-09-27 08:53 | Emergency (ER) | payer MEDICAID ==
[~2021-09-27] VITALS: Ht 160 cm; Wt 133.4 kg
[~2021-09-27 08:53] MED LIST changes: +CIPR-173 PO; +PERCOT PO
[2021-09-27 09:00] VITALS: BP 125/75
[2021-09-27 09:25] LABS: Basophils # (auto) 0.1 10 ^3/uL (0-0.2); Basophils % (auto) 1.3 % (0.0-2.0); Eosinophils # (auto) 0.5 10 ^3/uL (0-0.8); Eosinophils % (auto) 4.9 % (0.0-7.0); Hematocrit 38.4 % (36.0-46.0); Hemoglobin 13.3 g/dL (12.2-16.2); Lymphocytes # (auto) 3.6 10 ^3/uL (0.4-5.4); Lymphocytes % (auto) 32.1 % (10.0-50.0); Mean Corpuscular Hemoglobin 31.7 pg (28.0-32.0); Mean Corpuscular Hgb Conc. 34.6 g/dL (32.0-36.0); Mean Corpuscular Volume 91.5 fL (80.0-100.0); Monocytes # (auto) 0.9 10 ^3/uL (0-1.3); Monocytes % (auto) 7.9 % (0.0-12.0); Neutrophils % (auto) 53.8 % (37.0-80.0); Red Cell Distribution Width 13.8 % (11.8-14.3); White Blood Cell 11.1 10^3/uL (4.4-10.8)
[2021-09-27 09:53] LABS: Calcium 8.3 mg/dL (8.5-10.1); Potassium 3.9 mmol/L (3.5-5.1)
[2021-09-27 09:54] LABS: Urine Bacteria FEW /hpf (None Seen); Urine Blood Negative /uL (Negative); Urine Mucus FEW (None Seen); Urine Specific Gravity 1.028 (1.001-1.035); Urine WBC 1 /hpf (0 - 5)
[2021-09-27 09:58] LABS: BUN/Creatinine Ratio 21.4; Bilirubin, Total 0.6 mg/dL (0.2-1.0); Total Protein 6.9 g/dL (6.4-8.2)
[2021-09-27] MEDS ORDERED: OMNIPAQUE ORAL SOLN 500ml 12mg/ml PO ONE (10:07)
[2021-09-27] MEDS ORDERED: IBU600T PO (13:32)
[2021-09-27] MEDS ORDERED: HYDROcodone-ACET 10/325MG TAB PO ONE (13:45)
== END 2021-09-27 13:56 | disposition home or self-care (01) ==
LOC: ER 08:53
DX: K80.20 Calculus of gallbladder without cholecystitis without obstruction (principal); K76.0 Fatty (change of) liver, not elsewhere classified; F17.210 Nicotine dependence, cigarettes, uncomplicated; F12.10 Cannabis abuse, uncomplicated; Z87.442 Personal history of urinary calculi; Z32.02 Encounter for pregnancy test, result negative
CPT/HCPCS: 36415; 74177; 80053; 81001; 81025; 85025

== ENCOUNTER 2022-07-12 06:41 | Emergency (ER) | payer MEDICAID ==
[~2022-07-12] VITALS: Ht 160 cm; Wt 108.6 kg
[~2022-07-12 06:41] MED LIST changes: +IBU600T PO
[2022-07-12] MEDS ORDERED: CIP03OS LEFTEYE (07:36)
[2022-07-12 07:53] VITALS: BP 140/102
== END 2022-07-12 08:07 | disposition home or self-care (01) ==
LOC: ER 06:41
DX: H11.32 Conjunctival hemorrhage, left eye (principal); F17.210 Nicotine dependence, cigarettes, uncomplicated; F12.10 Cannabis abuse, uncomplicated; Z87.442 Personal history of urinary calculi; Z88.6 Allergy status to analgesic agent

== ENCOUNTER 2022-07-21 08:01 | Emergency (ER) | payer MEDICAID ==
[~2022-07-21] VITALS: Ht 160 cm; Wt 108.0 kg
[~2022-07-21 08:01] MED LIST changes: +CIP03OS LEFTEYE
[2022-07-21 08:30] VITALS: BP 127/77
[2022-07-21 08:44] LABS: Urine Bacteria FEW /hpf (None Seen); Urine Blood 2+ /uL (Negative); Urine Hyaline Cast FEW /lpf (0 - 2); Urine Mucus FEW (None Seen); Urine Specific Gravity 1.025 (1.001-1.035); Urine WBC 6 /hpf (0 - 5)
[2022-07-21] MEDS ORDERED: GABAPENTIN 300 MG CAP PO ONE (10:30)
[2022-07-21] MEDS ORDERED: IBUP800T26 PO (11:49)
== END 2022-07-21 11:50 | disposition home or self-care (01) ==
LOC: ER 08:01
DX: R21 Rash and other nonspecific skin eruption (principal); E66.01 Morbid (severe) obesity due to excess calories; R51.9 Headache, unspecified; F17.210 Nicotine dependence, cigarettes, uncomplicated; F12.10 Cannabis abuse, uncomplicated; Z68.41 Body mass index [BMI] 40.0-44.9, adult; Z87.442 Personal history of urinary calculi
CPT/HCPCS: 81001

== ENCOUNTER 2022-10-08 15:12 | Emergency (ER) | payer MEDICAID ==
[~2022-10-08] VITALS: Ht 157.5 cm; Wt 107.2 kg
[~2022-10-08 15:12] MED LIST changes: +IBUP-1455 PO
[2022-10-08] MEDS ORDERED: HYDROcodone-ACET 10/325MG TAB PO ONE (15:45)
[2022-10-08] MEDS ORDERED: PERCOT PO (17:57)
[2022-10-08] MEDS ORDERED: IBUP-1455 PO (17:57)
[2022-10-08] MEDS ORDERED: HYDROmorphone HCL 2 MG/ML VL/or syr IM ONE (18:00)
[2022-10-08 18:39] VITALS: BP 135/76
== END 2022-10-08 18:56 | disposition home or self-care (01) ==
LOC: EDBD 15:12 → ER 15:12
DX: M54.50 Low back pain, unspecified (principal); M47.816 Spondylosis without myelopathy or radiculopathy, lumbar region; M48.062 Spinal stenosis, lumbar region with neurogenic claudication; F17.210 Nicotine dependence, cigarettes, uncomplicated; Z79.1 Long term (current) use of non-steroidal anti-inflammatories (NSAID); Z79.2 Long term (current) use of antibiotics; Z79.4 Long term (current) use of insulin; Z79.899 Other long term (current) drug therapy; Z88.6 Allergy status to analgesic agent
CPT/HCPCS: 72100; 72131; 96372; 99285; J1170